=== PATIENT | male | born 1950 | race Caucasian/White ===

== ENCOUNTER 2017-11-18 06:00 | Day surgery (SDC) | payer MEDICARE, MEDICAID ==
[2017-11-12 10:35] LABS: EOSINOPHILS # (AUTO) 0.2 X10'3 (0-0.9); EOSINOPHILS % (AUTO) 3.9 % (0-6); LYMPHOCYTES # (AUTO) 1.2 X10'3 (1.1-4.8); LYMPHOCYTES % (AUTO) 22.5 % (21-51); MEAN CORPUSCULAR HEMOGLOBIN 29.4 PG (27.0-31.0); MEAN CORPUSCULAR VOLUME 86.5 FL (78-98); MEAN PLATELET VOLUME 8.2 FL (7.4-10.4); MONOCYTES # (AUTO) 0.3 X10'3 (0-0.9); MONOCYTES % (AUTO) 6.7 % (2-12); NEUTROPHILS # (AUTO) 3.4 X10'3 (1.8-7.7); NEUTROPHILS % (AUTO) 65.9 % (42-75); PRE OP HEMATOCRIT 41.3 % (42.0-52.0); PRE OP HEMOGLOBIN 14.1 g/dL (14.0-17.9); PRE OP PLATELET COUNT 147 X10'3 (140-440); RED BLOOD COUNT 4.78 X10'6 (4.70-6.10); RED CELL DISTRIBUTION WIDTH 13.8 % (11.5-14.5)
[2017-11-12 10:36] LABS: CLARITY,URINE CLEAR (Clear); GLUCOSE, URINE NEGATIVE (Neg); KETONES,URINE NEGATIVE (Neg); LEUKOCYTE ESTERASE ,URINE NEGATIVE (Neg); NITRITES, URINE NEGATIVE (Neg); OCCULT BLOOD,URINE NEGATIVE (Neg); PROTEIN,URINE NEGATIVE (Neg); UROBILINOGEN,URINE 0.2 E.U/dL (0.2-1.0)
[2017-11-12 10:41] LABS: COLOR,URINE AMBER (Yellow); UA COLLECTION TYPE CLN CATCH MIDSTREAM
[2017-11-12 11:00] LABS: ALBUMIN 3.9 G/DL (3.4-5.0); ALBUMIN/GLOBULIN RATIO 1.4 (1.1-1.5); ALKALINE PHOSPHATASE 123 IU/L (46-116); BLOOD UREA NITROGEN 14 MG/DL (7-18); BUN/CREATININE RATIO 11.6 (5.4-32.0); CALCIUM 9.2 MG/DL (8.5-10.1); CHLORIDE 103 MMOL/L (99-107); CREATININE 1.21 MG/DL (0.60-1.10); PRE OP ALT 30 U/L (30-65); PRE OP ANION GAP 7 (8-16); PRE OP AST 26 U/L (10-37); PRE OP BILIRUB, TOTAL 1.2 MG/DL (0.0-1.0); PRE OP GLUCOSE 104 MG/DL (70-104); PRE OP POTASSIUM 4.4 MMOL/L (3.4-5.1); PRE OP SODIUM 139 MMOL/L (135-145); TOTAL CARBON DIOXIDE 29.5 MMOL/L (24-32); TOTAL PROTEIN 6.7 G/DL (6.4-8.2); eGFR 60 ML/MIN
[~2017-11-18] VITALS: Ht 180.3 cm; Wt 86.5 kg
[2017-11-18] VITALS (13 sets, daily range): BP systolic 119–151; BP diastolic 61–85
[~2017-11-18 06:00] MED LIST: ALBU18HF2 INH; BUDE10.2 INH; DILT180C89 PO; LISI-600 PO; MELO-102 PO; TADA5TAB2 PO; ZOLP5TAB8 PO; ceFAZolin inj. 2,000 MG in normal saline 100ml IV soln 100 ML IV ONE; famotidine 20mg tablet PO ONE; ringers solution, lacted 1,000 ML IV SCH
[2017-11-18] MEDS ORDERED: ALBU2.5V13 NEB (06:37)
[2017-11-18] MEDS ORDERED: ceFAZolin 1000mg inj ONE (07:03)
[2017-11-18] MEDS ORDERED: BUPIVAcaine/PF 2.5mg/ml (0.25%) 10ml vial ONE ×2 (07:03→08:33)
[2017-11-18] MEDS ORDERED: sevoflurane 250ml liquid IH ONE (08:10)
[2017-11-18] MEDS ORDERED: fentaNYL/PF 50MCG/1 ML 2ML syringe ONE (08:20)
[2017-11-18] MEDS ORDERED: midazolam 2 mg/2 ml injection ONE (08:20)
[2017-11-18] MEDS ORDERED: dexamethasone sod phosphate 4mg/ml inj. ONE (08:35)
[2017-11-18] MEDS ORDERED: LIDOcaine 2% (20mg/ml) 5ml vial ONE (08:35)
[2017-11-18] MEDS ORDERED: ondansetron/PF 4mg/2ml inj ONE (08:35)
[2017-11-18] MEDS ORDERED: propofol inj 20 ML IV ONE (08:35)
[2017-11-18] MEDS ORDERED: ringers solution, lacted 1,000 ML IV SCH (09:23)
[2017-11-18] MEDS ORDERED: morphine 4 MG/ML inj SYRINge IV PRN ×2 (09:25)
[2017-11-18] MEDS ORDERED: ondansetron/PF 4mg/2ml inj IV PRN (09:25)
[2017-11-18] MEDS ORDERED: proCHLORperazine 10 MG/2 ml inj IV PRN (09:25)
[2017-11-18] MEDS ORDERED: meperidine/PF 25mg/ml syringe IV PRN ×3 (09:25)
== END 2017-11-18 11:23 | disposition home or self-care (01) ==
LOC: PAS 06:00
PROVIDERS: ATTEND Surgery
DX: K40.90 Unilateral inguinal hernia, without obstruction or gangrene, not specified as recurrent (principal); D36.0 Benign neoplasm of lymph nodes; I44.4 Left anterior fascicular block; J45.998 Other asthma; I10 Essential (primary) hypertension; M19.90 Unspecified osteoarthritis, unspecified site; N40.0 Benign prostatic hyperplasia without lower urinary tract symptoms; Z88.1 Allergy status to other antibiotic agents; Z91.048 Other nonmedicinal substance allergy status; Z85.820 Personal history of malignant melanoma of skin; Z79.899 Other long term (current) drug therapy; Z98.890 Other specified postprocedural states
CPT/HCPCS: 36415; 49505; 80053; 81003; 85025; 93005; A6449; C1781; J0690; J1100; J2001; J2250; J2405; J2704; J3010; J3490; J7030; J7120; 88302; 88304; A7000

== ENCOUNTER 2018-10-09 08:55 | Observation (INO) | payer MEDICARE, MEDICAID ==
[2018-10-02 12:09] LABS: BASOPHILS # (AUTO) 0.1 X10'3 (0-0.2); BASOPHILS % (AUTO) 1.2 % (0-1); EOSINOPHILS # (AUTO) 0.1 X10'3 (0-0.9); EOSINOPHILS % (AUTO) 1.9 % (0-6); LYMPHOCYTES # (AUTO) 1.1 X10'3 (1.1-4.8); LYMPHOCYTES % (AUTO) 23.2 % (21-51); MEAN CORPUSCULAR HEMOGLOBIN 28.9 PG (27.0-31.0); MEAN CORPUSCULAR HGB CONC 33.1 g/dL (33.0-36.5); MEAN CORPUSCULAR VOLUME 87.5 FL (78-98); MEAN PLATELET VOLUME 8.1 FL (7.4-10.4); MONOCYTES # (AUTO) 0.3 X10'3 (0-0.9); MONOCYTES % (AUTO) 6.4 % (2-12); NEUTROPHILS # (AUTO) 3.2 X10'3 (1.8-7.7); NEUTROPHILS % (AUTO) 67.3 % (42-75); PRE OP HEMATOCRIT 43.9 % (42.0-52.0); PRE OP HEMOGLOBIN 14.5 g/dL (14.0-17.9); PRE OP PLATELET COUNT 150 X10'3 (140-440); RED BLOOD COUNT 5.02 X10'6 (4.70-6.10); RED CELL DISTRIBUTION WIDTH 14.1 % (11.5-14.5)
[2018-10-02 12:26] LABS: ALBUMIN/GLOBULIN RATIO 1.4 (1.1-1.5); ALKALINE PHOSPHATASE 97 IU/L (46-116); BLOOD UREA NITROGEN 15 MG/DL (7-18); BUN/CREATININE RATIO 12.2 (5.4-32.0); CALCIUM 9.2 MG/DL (8.5-10.1); CHLORIDE 103 MMOL/L (99-107); CREATININE 1.23 MG/DL (0.60-1.10); PRE OP ALT 35 U/L (30-65); PRE OP ANION GAP 6 (8-16); PRE OP AST 32 U/L (10-37); PRE OP BILIRUB, TOTAL 1.5 MG/DL (0.0-1.0); PRE OP GLUCOSE 96 MG/DL (70-104); PRE OP SODIUM 140 MMOL/L (135-145); TOTAL PROTEIN 6.9 G/DL (6.4-8.2); eGFR 59 ML/MIN
[2018-10-02 12:27] LABS: PRE OP POTASSIUM 4.6 MMOL/L (3.4-5.1)
[2018-10-02 12:32] LABS: PRE OP INR 1.1 INR; PRE OP PROTIME 11.1 SECONDS (9.0-12.0)
[~2018-10-09] VITALS: Ht 180.3 cm; Wt 90.0 kg
[2018-10-09] VITALS (25 sets, daily range): BP systolic 108–157; BP diastolic 56–85
[~2018-10-09 08:55] MED LIST changes: -TADA5TAB2 PO; -ZOLP5TAB8 PO; +albuterol 2.5 MG/3 ML nebule NEB ONE; -ceFAZolin inj. 2,000 MG in normal saline 100ml IV soln 100 ML IV ONE; +cefazolin/dext.iso 2gm/100 ML IV ONE
[2018-10-09] MEDS ORDERED: ringers solution, lacted 1,000 ML IV SCH ×2 (09:53→10:55)
[2018-10-09] MEDS ORDERED: ondansetron/PF 4mg/2ml inj IV PRN ×3 (09:55→13:30)
[2018-10-09] MEDS ORDERED: fentaNYL/PF 50MCG/1 ML 2ML syringe IV PRN ×4 (09:55→10:55)
[2018-10-09] MEDS ORDERED: enalaprilat dihydrate 2.5mg/2ml vial IV PRN ×2 (09:55→10:55)
[2018-10-09] MEDS ORDERED: morphine 4 MG/ML inj SYRINge IV PRN ×4 (09:55→10:55)
[2018-10-09] MEDS ORDERED: labetalol 20mg/4ml (5mg/ml) syringe IV PRN (09:55)
[2018-10-09] MEDS ORDERED: hydrALAZINE 20mg/ml inj. IV PRN (10:55)
[2018-10-09] MEDS ORDERED: midazolam 2 mg/2 ml injection ONE (11:34)
[2018-10-09] MEDS ORDERED: fentaNYL/PF 50MCG/1 ML 2ML syringe ONE (11:34)
[2018-10-09] MEDS ORDERED: MIDAZolam 1mg/ml 10ml vial ONE (11:52)
[2018-10-09] MEDS ORDERED: LIDOcaine 2% (20mg/ml) 5ml vial ONE (11:53)
[2018-10-09] MEDS ORDERED: propofol inj 20 ML IV ONE (11:53)
[2018-10-09] MEDS ORDERED: diphenhydrAMINE 50 mg/ml inj ONE (12:03)
--- NOTE | 2018-10-09 12:55 | NUR ---
Received from OR via , accompanied by Anesthesiologist DR REBOLLEDO and report given by Anesthesiolgist. AWAKENS TO VOICE. VITALS STABLE. MARIAM PAIN. SENSATION AT THE HIPS. CBI WITH CLEAR LITE PINK URINE.
[2018-10-09] MEDS ORDERED: oxybutynin 5mg tablet PO PRN (13:30)
[2018-10-09] MEDS ORDERED: acetaminophen 325mg tablet PO PRN (13:30)
[2018-10-09] MEDS ORDERED: zolpidem 5mg tablet PO PRN (13:30)
[2018-10-09] MEDS ORDERED: HYDROcodone/acetaminophen 10/325mg tab PO PRN ×2 (13:30)
[2018-10-09] MEDS ORDERED: proCHLORperazine 10 MG/2 ml inj IV PRN (13:30)
[2018-10-09] MEDS ORDERED: mag hydrox/Alum hydrox/simeth 30ml oral suspension PO PRN (13:30)
[2018-10-09] MEDS ORDERED: albuterol 2.5 MG/3 ML nebule NEB PRN (13:55)
[2018-10-09] MEDS: albuterol 2.5 MG/3 ML nebule NEB SCH ×2 (15:00→20:26)
--- NOTE | 2018-10-09 15:35 | NUR ---
Report called to receiving nurse. Transferred via BED Belongings . Special Issues communicated to receiving nurse. AWAKE AND ORIENTED. VITALS STABLE. MARIAM PAIN. CBI WITH CLEAR PINK URINE. TO SURGICAL RM 347A AT THIS TIME.
[2018-10-09] MEDS ORDERED: ceFAZolin inj. 1,000 MG in dextrose 5%-water 50ml 50 ML IV SCH (16:00)
[2018-10-09] MEDS: ceFAZolin 1GM/D5W- ADD-VANTAGE 50 ML IV SCH ×2 (16:15→23:41)
[2018-10-09] MEDS: potassium cl 20mEq in 1/2 NS 1,000 ML IV SCH ×2 (16:22→23:41)
--- NOTE | 2018-10-09 16:53 | NUR ---
Received from recovery room via bed. Received report from Braulio. Oriented pt to room, unit, and plan of care. CBI infusing, draining clear colored urine. Port op vitals being taken.
--- NOTE | 2018-10-09 18:04 | NUR ---
Problems reprioritized. Patient report given, questions answered & plan of care reviewed with CHITO .
--- NOTE | 2018-10-09 18:05 | NUR ---
Patient in room [facility]. I have received report from MARLEN Alvarado and had the opportunity to ask questions and assume patient care.
[2018-10-09] MEDS ORDERED: non-formulary drug (Budesonide/Formoterol Fumarate (Symbicort 160-4.5 Mcg Inhaler) 1 PUFF) INH SCH (20:00)
[2018-10-09] MEDS: BUDESONIDE 0.25 MG/2 ML AMPUL.NEB IH SCH (20:26)
[2018-10-09] MEDS ORDERED: lisinopril 20mg tablet PO SCH (21:00)
[2018-10-09] MEDS ORDERED: diltiazem CD 180mg cap (once-daily) PO SCH (21:00)
[2018-10-09] MEDS: docusate sod 100mg capsule PO SCH (21:22)
[2018-10-10] VITALS: BP 175/93
--- NOTE | 2018-10-10 06:30 | NUR ---
Patient in room [facility] 340. I have received report from Douglas GEE and had the opportunity to ask questions and assume patient care.
[2018-10-10 06:37] LABS: ALBUMIN 3.4 G/DL (3.4-5.0); ANION GAP 6 (8-16); BLOOD UREA NITROGEN 12 MG/DL (7-18); BUN/CREATININE RATIO 10.1 (5.4-32.0); CHLORIDE 103 MMOL/L (99-107); CREATININE 1.19 MG/DL (0.60-1.10); GLUCOSE 93 MG/DL (70-104); SODIUM 135 MMOL/L (135-145); eGFR 61 ML/MIN
--- NOTE | 2018-10-10 06:49 | NUR ---
Problems reprioritized. Patient report given, questions answered & plan of care reviewed with MARLEN Gabriel.
[2018-10-10 06:53] LABS: BASOPHILS % (AUTO) 0.4 % (0-1); EOSINOPHILS # (AUTO) 0.2 X10'3 (0-0.9); EOSINOPHILS % (AUTO) 3.1 % (0-6); HEMATOCRIT 42.6 % (42.0-52.0); HEMOGLOBIN 14.7 g/dl (14.0-17.9); LYMPHOCYTES # (AUTO) 0.9 X10'3 (1.1-4.8); LYMPHOCYTES % (AUTO) 12.4 % (21-51); MEAN CORPUSCULAR HEMOGLOBIN 29.8 PG (27.0-31.0); MEAN CORPUSCULAR HGB CONC 34.5 g/dL (33.0-36.5); MEAN CORPUSCULAR VOLUME 86.2 FL (78-98); MEAN PLATELET VOLUME 8.6 FL (7.4-10.4); MONOCYTES # (AUTO) 0.5 X10'3 (0-0.9); MONOCYTES % (AUTO) 6.5 % (2-12); NEUTROPHILS # (AUTO) 5.8 X10'3 (1.8-7.7); NEUTROPHILS % (AUTO) 77.6 % (42-75); PLATELET COUNT 134 X10'3 (140-440); RED BLOOD COUNT 4.94 X10'6 (4.70-6.10); RED CELL DISTRIBUTION WIDTH 13.7 % (11.5-14.5); WHITE BLOOD COUNT 7.5 X10'3 (4.5-11.0)
[2018-10-10] MEDS: albuterol 2.5 MG/3 ML nebule NEB SCH ×2 (07:16→11:00)
[2018-10-10] MEDS: BUDESONIDE 0.25 MG/2 ML AMPUL.NEB IH SCH (07:16)
[2018-10-10] MEDS ORDERED: pantoprazole 40mg Tablet.DR PO SCH (07:30)
[2018-10-10 07:59] VITALS: BP 141/90
[2018-10-10] MEDS: potassium cl 20mEq in 1/2 NS 1,000 ML IV SCH ×2 (08:21→13:29)
[2018-10-10] MEDS: docusate sod 100mg capsule PO SCH (08:21)
[2018-10-10] MEDS: ceFAZolin 1GM/D5W- ADD-VANTAGE 50 ML IV SCH (08:21)
[2018-10-10 11:44] VITALS: BP 149/87
[2018-10-10] MEDS ORDERED: DOCU-28 PO (13:55)
--- NOTE | 2018-10-10 15:35 | NUR ---
Patient discharged with all belongings. W/C to front lobby. Patient given F/C care education. Pt understands to followup with Dr. Guzmán. Patient to take self home, okay with pt driving self home. Rx called in to [facility]. IV taken out.
== END 2018-10-10 15:30 | disposition home or self-care (01) ==
LOC: PAS 08:55 → SUR 3N 13:34
PROVIDERS: ADMIT Urology; ATTEND Urology
DX: N32.0 Bladder-neck obstruction (principal); N40.0 Benign prostatic hyperplasia without lower urinary tract symptoms
CPT/HCPCS: 36415; 52630; 80048; 80053; 82948; 85025; 85610; 85730; 86885; 86900; 86901; 87070; 93005; 94640; 94760; 96365; 96366; G0378; J0690; J1200; J2001; J2250; J2704; J3010; 88305; A4346; A4615; J7030; J7060; J7120